=== PATIENT | female | born 1970 | race Caucasian/White ===

== ENCOUNTER → 2017-10-20 | Outpatient (CLI) | payer OTHER ==
--- NOTE | 2017-10-21 14:10 | XR ---
Limited cervical spine HISTORY: Strain of neck, neck pain 3 views of the cervical spine No comparisons Cervical vertebral bodies show preserved height, alignment, and bone mineralization. Disc spaces redu rafa at C5-6 and C6-7. Prevertebral soft tissues are normal. Spondylosis is present at C5-6 and C6-7. IMPRESSION: Degenerative disc disease.
== END | disposition home or self-care (01) ==
LOC: RADXRMAIN 17:59
PROVIDERS: ATTEND Family Medicine
DX: M50.30 Other cervical disc degeneration, unspecified cervical region (principal)
CPT/HCPCS: 72040

== ENCOUNTER → 2017-11-19 | Outpatient (CLI) | payer OTHER ==
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
== END ==
LOC: RADMRIMAIN 19:42
PROVIDERS: ATTEND Family Medicine
DX: M50.222 Other cervical disc displacement at C5-C6 level (principal)
CPT/HCPCS: 72141

== ENCOUNTER → 2018-07-05 | Outpatient (CLI) | payer OTHER ==
--- NOTE | 2018-07-05 12:47 | XR ---
EXAMINATION TYPE: XR chest 2V DATE OF EXAM: 07/05/2018 COMPARISON: NONE HISTORY: Presurgical TECHNIQUE: Frontal and lateral views of the chest are obtained. FINDINGS: There is no focal air space opacity, pleural effusion, or pneumothorax seen. Suspect a li near area of scarring left upper lobe. The cardiac silhouette size is within normal limits. Thoracic spinal curvature is noted. Hyperinflation be indicative of underlying COPD. The osseous structures a re intact. IMPRESSION: No acute cardiopulmonary process.
[2018-07-05 12:49] LABS: Basophils # (A) 0.1 k/uL (0-0.2); Basophils % (A) 1 %; Eosinophils # (A) 0.1 k/uL (0-0.7); Eosinophils % (A) 2 %; HCT 39.3 % (34.0-46.0); HGB 12.3 gm/dL (11.4-16.0); Hypochromasia Slight; Lymphocytes # (A) 1.4 k/uL (1.0-4.8); Lymphocytes % (A) 30 %; MCH 26.4 pg (25.0-35.0); MCHC 31.4 g/dL (31.0-37.0); MCV 83.9 fL (80.0-100.0); Mean Platelet Volume 8.5; Monocytes # (A) 0.3 k/uL (0-1.0); Monocytes % (A) 6 %; Neutrophils # (A) 2.8 k/uL (1.3-7.7); Neutrophils % (A) 59 %; Platelet Count 259 k/uL (150-450); RBC 4.68 m/uL (3.80-5.40); RDW 14.5 % (11.5-15.5); WBC 4.7 k/uL (3.8-10.6)
[2018-07-05 13:05] LABS: Partial Thromboplastin Time 23.3 sec (22.0-30.0); Prothrombin Time 10.3 sec (9.0-12.0)
[2018-07-05 13:10] LABS: Blood Urea Nitrogen 12 mg/dL (7-17); Carbon Dioxide 19 mmol/L (22-30); Chloride 109 mmol/L (98-107); Glucose 111 mg/dL (74-99)
[2018-07-05 13:21] LABS: Potassium 4.5 mmol/L (3.5-5.1)
[2018-07-05 13:24] LABS: Anion Gap 13 mmol/L; Sodium 141 mmol/L (137-145)
== END | disposition home or self-care (01) ==
LOC: LABPAT 10:45
PROVIDERS: ATTEND Orthopaedic Surgery Orthopaedic Surgery of the Spine
DX: Z01.818 Encounter for other preprocedural examination (principal); M50.222 Other cervical disc displacement at C5-C6 level
CPT/HCPCS: 36415; 71046; 80048; 85025; 85610; 85730

== ENCOUNTER → 2018-07-14 | Outpatient (CLI) | payer OTHER | LOC: LABPAT 10:28 | PROVIDERS: ATTEND Orthopaedic Surgery Orthopaedic Surgery of the Spine | DX: Z01.812 Encounter for preprocedural laboratory examination (principal); M50.222 Other cervical disc displacement at C5-C6 level | CPT/HCPCS: 36415; 86850; 86900; 86901 ==

== ENCOUNTER 2018-07-20 11:53 | Day surgery (SDC) | payer OTHER ==
[2018-07-12 09:27] VITALS: BMI 28.5
[~2018-07-20 11:53] MED LIST: DEXAMETHASONE SOD PHOSPHATE 10 MG/ML 1 ML VIAL IV ONE; HYDROmorphone 1 MG/ML 1 ML SYRINGE IVP PRN; LIDOCAINE 1% 20 ML VIAL (10MG/ML) FOR IV START INTRADERMA PRN; MIDAZOLAM 2 MG/2 ML VIAL IV PRN; SCOPOLAMINE 1.5MG/72HR PATCH TRANSDERM ONE; ceFAZolin IN SWFI 2 GM/20 ML SYRINGE IVP ONE
[2018-07-20] MEDS ORDERED: BACITRACIN 50,000 UNIT, POLYMYXIN B 500,000 UNIT in SODIUM CHLORIDE 0.9% IRRIGATIO 1,00... IRRIGATION ONE (12:48)
[2018-07-20] MEDS: ONDANSETRON 4 MG/2 ML VIAL IVP ONE ×2 (13:30→17:02)
[2018-07-20] MEDS: LACTATED RINGERS 1,000 ML IV SCH ×3 (13:30→18:16)
[2018-07-20] MEDS ORDERED: MIDAZOLAM 2 MG/2 ML VIAL ONE (13:44)
[2018-07-20] MEDS ORDERED: SUCCINYLCHOLINE CHLORIDE 100 MG/5 ML SYR IV ONE (13:44)
[2018-07-20] MEDS ORDERED: PROPOFOL 10 MG/ML 20 ML VIAL IV ONE (13:44)
[2018-07-20] MEDS ORDERED: fentaNYL (PF) 50 MCG/ML 2 ML AMP ONE (13:44)
[2018-07-20] MEDS ORDERED: LIDOCAINE 1% INJ 10MG/ML (20 ML MDV) ONE (13:44)
[2018-07-20] MEDS ORDERED: HYDROmorphone (PF) 1 MG/ML ONE (13:44)
[2018-07-20] MEDS ORDERED: BUPIVACAINE-EPI 0.5%-1:200,000 10 ML VIAL SQ ONE (14:15)
[2018-07-20] MEDS ORDERED: GELATIN SPONGE,ABSORB (LARGE) 1 EACH SPONGE TOPICAL ONE (14:55)
[2018-07-20] MEDS ORDERED: THROMBIN (BOVINE) 5,000 UNIT VIAL TOPICAL ONE (14:56)
--- NOTE | 2018-07-20 15:18 | XR ---
EXAMINATION TYPE: XR cervical spine 1V DATE OF EXAM: 07/20/2018 COMPARISON: NONE HISTORY: Needle placement TECHNIQUE: One view submitted FINDINGS: Postsurgical instrument overlying the disc interspace of C5-C6. Endotracheal tube noted. Hy pertrophic and degenerative disc disease noted. IMPRESSION: Intraoperative needle placement
[2018-07-20] MEDS ORDERED: ACETAMINOPHEN TAB 325 MG TAB PO PRN (15:41)
[2018-07-20] MEDS ORDERED: ONDANSETRON 4 MG/2 ML VIAL IVP PRN (15:41)
[2018-07-20] MEDS ORDERED: HYDROmorphone 1 MG/ML 1 ML SYRINGE IVP PRN (15:41)
[2018-07-20] MEDS ORDERED: BENZOCAINE/MENTHOL LOZENG 1 EACH LOZENGE MUCOUS MEM PRN (15:41)
[2018-07-20] MEDS ORDERED: tiZANidine 4 MG TAB PO PRN (15:42)
--- NOTE | 2018-07-20 15:43 | XR ---
EXAMINATION TYPE: XR cervical spine 1V DATE OF EXAM: 07/20/2018 COMPARISON: 07/20/2018 HISTORY: Hardware placement TECHNIQUE: One view submitted FINDINGS: Postsurgical change appears in near-anatomic alignment. Soft tissue overlap limits assessme nt of the lower postsurgical region. Endotracheal tube noted. IMPRESSION: Postsurgical changes
--- NOTE | 2018-07-20 15:47 | P.OP ---
Date of Procedure: 07/20/18 Preoperative Diagnosis: Herniated nucleus pulposus C5 6 C6 7, left upper extremity radiculopathy, left upper extremity weakness, degenerative disc disease, neck pain Postoperative Diagnosis: Same Anesthesia: GETA Pathology: none sent Condition: stable Disposition: PACU Description of Procedure: BRIEF OPERATIVE NOTE Preoperative Diagnosis:Herniated nucleus pulposus C5 6 C6 7, left upper extremity radiculopathy, left upper extremity weakness, degenerative disc disease, neck pain Postoperative Diagnosis: Same Procedure: Anterior cervical decompression with discectomy and fusion C5 6 C6 7 Placement of interbody graft C5 6 C6 7 Application of anterior cervical plate C5 6 7 Surgeon: Dr. Mon Snuff Grinder And Screener: Florentino Todd is present throughout the entire the case persistence during positioning, dissection, exposure, visualization, and all crucial elements of the case as well as closure. Anesthesia: General anesthesia per Dr. Marquis Estimated blood loss: Approximately 150 mL Complications: None apparent Components implanted: K2M [place] anterior cervical plate system with screws and the Vikos interbody allograft bone graft with 1 mL of DBX bone putty to supplemental allograft bone graft Disposition: To recovery room in good stable condition. OPERATIVE INDICATIONS The patient has had long-standing issues in their neck and upper extremities. She is found have a disc herniation at C5 6 and C6 7 with significant disc degeneration and stenosis the correlated well with her neck and left upper extremity symptoms. She is having significant left upper extremity radiculopathy and some evidence weakness at her left upper extremity. She continued to have significant pain at her neck which was becoming increasingly debilitating for her. The patient has been through conservative treatment. She is not having any benefit despite aggressive conservative care. We discussed various treatment options including surgery, and the patient wishes to proceed with surgery We discussed the risk, patient's alternatives and benefits of surgery including but not limited to, risk of bleeding risk of infection, risk of need for further surgery, risk of decreased, loss of motion, muscle function, malunion nonunion, hardware failure, nerve damage, paralysis, heart attack, and . OPERATIVE SUMMARY After discussing all the risks, patient alternatives and benefits at length, the patient elected to proceed with surgical intervention, signed informed consent, and presented for their procedure. The patient was seen and examined in the preoperative holding area and the surgical site was marked. The patient was given antibiotics and brought to the operating room. The patient was positioned on the operating room table in a supine position being careful to pad any bony prominences and pressure points. The patient was sedated and intubated by anesthesia in standard fashion. Once the airway and C- spine were stabilized the patient's arms were padded and tucked at her side, with her shoulders gently taped. The head was placed in a donut pad with the neck in good neutral alignment and position. We were careful to maintain the patient's cervical spine and good neutral alignment and position throughout. The patient was prepped and draped in a normal standard fashion. An appropriate timeout and keystone protocol performed. We were able to proceed with the surgery. The local wound area was infiltrated with local anesthetic. An incision was made transversely approximately 2-1/2 cm over the appropriate levels at C6. Dissection was taken down subcutaneously to the level of the platysma which was split in line with its fibers. Dissection was taken with a carotid approach, with the trachea and esophagus medial and the carotid sheath laterally. We dissected down to the anterior surface of the vertebral bodies. Intraoperative x-ray was taken which showed a marker at the appropriate level. With the appropriate level positively confirmed, we were able to proceed with discectomy at the appropriate levels first at C5 6 and then at C6 7. All of the operative levels were exposed appropriately. The patient had all their twitches back, and there was no evidence of recurrent laryngeal issue. The wound was copiously irrigated and suctioned dry as had been done periodically throughout the case. At the appropriate level/levels, I established an annulotomy with an 11 blade scalpel. I had to remove the anterior osteophytes with a Kerrison rongeur. A discectomy was performed with a combination of pituitary rongeurs, curettes, a high-speed bur, and Kerrison rongeurs. The posterior longitudinal ligament was taken down as were any posterior osteophytes. There had been significant central and bilateral foraminal compression from the disc and posterior osteophytes and ligament and this was remedied with the decompression. This gave good central and bilateral foraminal decompression. There is no evidence of any dural tear or leak. The endplates were prepared with a high-speed bur. With the endplates in good parallel position, I was able to size for the appropriate size interbody graft. The wound was irrigated and suctioned dry the graft was prepared and malleted into position. It had good alignment and position with the anterior surface flush with the anterior surface of the vertebral bodies. This was done similarly the appropriate levels. With the grafts intact, I was able to measure and contour and appropriate sized plate. The plate was positioned at the midline over the appropriate levels at C5 6 and 7. Screw holes were established with a hand drill and drill guide. Screws were placed in good alignment and position with excellent bony purchase. They were seated under the locking device. The construct was checked and found to be stable. Intraoperative x-ray was taken which showed good alignment and position of the implants at the appropriate levels. There was no evidence of any dural tear or leak. Good hemostasis was maintained. The wound was copiously irrigated and suctioned dry as had been done periodically throughout the case. The platysma was closed with absorbable suture. The subcutaneous tissue was closed. The subcuticular tissue was closed with absorbable suture. The wound was cleaned and dried and dressed appropriately. A soft cervical collar was placed appropriately. The patient was woken up by anesthesia, extubated, transferred back gently to their hospital bed and brought to the recovery room in good stable condition. The patient will be admitted to the hospital for appropriate postoperative care , medical management and monitoring. We will continue to follow them closely about the postoperative course.
[2018-07-20] MEDS ORDERED: SODIUM CHLORIDE 0.9% 1,000 ML IV ONE (16:44)
[2018-07-20] MEDS: HYDROmorphone 1 MG/ML 1 ML SYRINGE IVP PRN (18:13)
[2018-07-20] MEDS: SODIUM CHLORIDE 0.9% 1,000 ML IV SCH (18:16)
[2018-07-20] MEDS: HYDROcodone/APAP 5-325MG 1 EACH TAB PO PRN (19:48)
[2018-07-20] MEDS ORDERED: TOPIRAMATE 100 MG TAB PO SCH (21:00)
[2018-07-20] MEDS ORDERED: SERTRALINE 100 MG TAB PO SCH (21:00)
[2018-07-20] MEDS ORDERED: ALPRAZolam 0.5 MG TAB PO SCH (21:00)
[2018-07-20] MEDS ORDERED: ARIPiprazole 10 MG TAB PO SCH (21:00)
[2018-07-20] MEDS: ceFAZolin IN SWFI 2 GM/20 ML SYRINGE IVP SCH (21:29)
[2018-07-21] MEDS: HYDROcodone/APAP 5-325MG 1 EACH TAB PO PRN ×2 (00:27→07:41)
[2018-07-21] MEDS: HYDROmorphone 1 MG/ML 1 ML SYRINGE IVP PRN (02:46)
[2018-07-21] MEDS: SODIUM CHLORIDE 0.9% 1,000 ML IV SCH (04:35)
[2018-07-21] MEDS: ceFAZolin IN SWFI 2 GM/20 ML SYRINGE IVP SCH (05:41)
--- NOTE | 2018-07-21 08:20 | P.DS ---
Providers Date of admission: july 20, 2018 Attending physician: Malvin Mon Primary care physician: [facility] Course: The patient presented on the day of admission as per her operative note. She had significant cervical stenosis with herniated nucleus pulposis and underwent anterior cervical discectomy and fusion at C5 6 and C6 7 as per her operative note. She feels her arms are making some improvement. She has some tenderness at the anterior aspect of her neck. Her right chest but is tolerable for her. She is tolerating a soft diet adequately. Physical Exam The incision site is clean dry and intact. There is no erythema no drainage. There is no purulence no evidence of infection. Her neck is soft and supple. There is no significant swelling. There is some small amount of shadowing on the dressing which is stable. Abdomen soft and nontender. Chest has good excursion with deep inspiration and expiration. The patient has active and passive range of motion intact at the upper and lower extremities. There is no acute change in neurologic status. She has good strength in her bilateral upper extremities with wrist flexion and extension biceps and triceps Hospital Course Postoperative day 1 status post anterior cervical discectomy and fusion C5 6 C6 7 for her cervical stenosis with herniated nucleus pulposus and upper extremity radiculopathy on the left. Patient is making good progress postoperatively and is pleased with her results thus far. The patient has been making good progress postoperatively. They have completed the prophylactic antibiotics without any signs or symptoms of infection. The patient has been able to advance their diet, and is tolerating diet adequately. The pain was initially controlled with IV medications and is now controlled appropriately with oral medications. The patient has been able to increase their mobilization. The patient has progressed appropriately. I think they are in good stable condition for discharge today. They will be sent home with appropriate prescriptions. I answered their questions to the best of my ability in a language that they can understand and they are agreeable with the plan. They will follow up as directed in approximately 2 weeks or sooner if she is having any problems. Patient Condition at Discharge: Good Plan - Discharge Summary Discharge Rx Participant: Yes New Discharge Prescriptions: New HYDROcodone/APAP 5-325MG [[place] 5] 1 - 2 each PO Q6HR PRN #24 tab PRN Reason: Moderate To Severe Pain No Action tiZANidine [Zanaflex] 4 mg PO DAILY PRN PRN Reason: Muscle Pain Sertraline [Zoloft] 100 mg PO HS Topiramate [Topamax] 100 mg PO HS ARIPiprazole [Abilify] 10 mg PO HS ALPRAZolam [Xanax] 1 mg PO HS Discharge Medication List ALPRAZolam [Xanax] 1 mg PO HS 07/12/18 [History] ARIPiprazole [Abilify] 10 mg PO HS 07/12/18 [History] Sertraline [Zoloft] 100 mg PO HS 07/12/18 [History] Topiramate [Topamax] 100 mg PO HS 07/12/18 [History] tiZANidine [Zanaflex] 4 mg PO DAILY PRN 07/12/18 [History] HYDROcodone/APAP 5-325MG [[place] 5] 1 - 2 each PO Q6HR PRN #24 tab 07/20/18 [Rx] Follow up Appointment(s)/Referral(s): Malvin Mon DO [Doctor of Osteopathic Medicine] - 2 Weeks Activity/Diet/Wound Care/Special Instructions: Keep site clean. May shower with waterproof Tegaderm intact. Do not soak in a tub. On Wednesday, the patient May remove Tegaderm, but leave Steri-Strips intact and allow them to fray off on their own. After the removal of the dressing on Wednesday the patient may shower with area uncovered. Avoid heavy or rigorous activity. No overhead work No lifting greater than 15 pounds May ambulate to tolerance Discharge Disposition: HOME SELF-CARE
[2018-07-21 09:53] VITALS: BP 109/74; PULSE 72; RESP 16; TEMP 97.4
== END 2018-07-21 10:23 | disposition home or self-care (01) ==
LOC: OR 11:53 → 4SSUR 16:29 → OR 07-21 10:23
PROVIDERS: ATTEND Orthopaedic Surgery Orthopaedic Surgery of the Spine
DX: M50.122 Cervical disc disorder at C5-C6 level with radiculopathy (principal); M50.10 Cervical disc disorder with radiculopathy, unspecified cervical region; F32.9 Major depressive disorder, single episode, unspecified; J43.9 Emphysema, unspecified; E66.9 Obesity, unspecified; Z68.28 Body mass index [BMI] 28.0-28.9, adult; Z98.1 Arthrodesis status; J45.909 Unspecified asthma, uncomplicated; F41.9 Anxiety disorder, unspecified; Z98.84 Bariatric surgery status; Z79.899 Other long term (current) drug therapy; Z88.8 Allergy status to other drugs, medicaments and biological substances; Z87.891 Personal history of nicotine dependence
CPT/HCPCS: 22551; 22552; 20931; 81025; 72020; C1713 ×2; C1762 ×2; J2250; J2405; J2001; J3010; J1170 ×2; J0330; J2704; J0690 ×2; 36415; 86850; 86900; 86901

== ENCOUNTER → 2019-09-05 | Outpatient (CLI) | payer OTHER ==
--- NOTE | 2019-09-21 12:45 | EM ---
EVENT MONITOR Patient was monitored between the 05 of September and August,. The rhythm strip reviewed revealed a sinus mechanism as a baseline rhythm with single PVCs with short bursts SVT at a maximum of 5 complexes. There was no evidence of atrial fibrillation or significant pauses. SUGAR / SHIRA: [id number] /
== END | disposition home or self-care (01) ==
LOC: RADECHMAIN 11:45
PROVIDERS: ATTEND Family Medicine
DX: R55 Syncope and collapse (principal)
CPT/HCPCS: 93270

== ENCOUNTER → 2019-10-13 | Outpatient (CLI) | payer OTHER ==
--- NOTE | 2019-10-13 12:36 | ECHOF ---
Referral Reason:R55 syncope and collapse MEASUREMENTS -------- HEIGHT: 162.6 cm WEIGHT: 71.2 kg BP: RVIDd: 3.2 cm (< 3.3) IVSd: 1.0 cm (0.6 - 1.1) LVIDd: 3.2 cm (3.9 - 5.3) LVPWd: 0.9 cm (0.6 - 1.1) IVSs: 1.1 cm LVIDs: 2.6 cm LVPWs: 1.9 cm LAESV Index (A-L): 20.90 ml/m IVSd: 0.9 cm (0.6 - 1.1) LVIDd: 5.3 cm (3.9 - 5.3) LVPWd: 1.1 cm (0.6 - 1.1) IVSs: 1.9 cm LVIDs: 3.7 cm LVPWs: 1.6 cm EDV(Teich): 138 ml ESV(Teich): 57 ml EF(Teich): 59 % %FS: 31 % SV(Teich): 81 ml Ao Diam: 3.1 cm (2.0 - 3.7) AV Cusp: 1.6 cm (1.5 - 2.6) MV EXCURSION: 17.918 mm (> 18.000) MV EF SLOPE: 110 mm/s (70 - 150) EPSS: 0.3 cm MV E Milad: 0.73 m/s MV DecT: 219 ms MV A Milad: 0.47 m/s MV E/A Ratio: 1.56 RAP: 5.00 mmHg RVSP: 28.98 mmHg FINDINGS -------- Sinus rhythm. This was a technically good study. The left ventricular size is normal. Left ventricular wall thickness is normal. Overall left vent ricular systolic function is normal with, an EF between 60 - 65 %. The diastolic filling pattern is normal for the age of the patient 7.09. The right ventricle is normal in size. Normal LA size by volume 22+/-6 ml/m2. The right atrial size is normal. Interatrial and interventricular septum intact. The aortic valve is trileaflet and appears structurally normal. There is no evidence of aortic regu rgitation. There is no evidence of aortic stenosis. The mitral valve is normal. There is trace mitral regurgitation. Mild tricuspid regurgitation present. There is no evidence of pulmonary hypertension. The right v entricular systolic pressure, as measured by Doppler, is 28.98mmHg. The pulmonic valve is normal. The aortic root size is normal. Normal inferior vena cava with normal inspiratory collapse consistent with estimated right atrial pre ssure of 5 mmHg. There is no pericardial effusion. CONCLUSIONS -------- 1. Sinus rhythm. 2. This was a technically good study. 3. The left ventricular size is normal. 4. Left ventricular wall thickness is normal. 5. Overall left ventricular systolic function is normal with, an EF between 60 - 65 %. 6. The diastolic filling pattern is normal for the age of the patient 7.09 7. The right ventricle is normal in size. 8. Normal LA size by volume 22+/-6 ml/m2. 9. The right atrial size is normal. 10. Interatrial and interventricular septum intact. 11. The aortic valve is trileaflet and appears structurally normal. 12. There is no evidence of aortic regurgitation. 13. There is no evidence of aortic stenosis. 14. The mitral valve is normal. 15. There is trace mitral regurgitation. 16. Mild tricuspid regurgitation present. 17. There is no evidence of pulmonary hypertension. 18. The right ventricular systolic pressure, as measured by Doppler, is 28.98mmHg. 19. The pulmonic valve is normal. 20. The aortic root size is normal. 21. Normal inferior vena cava with normal inspiratory collapse consistent with estimated right atrial pressure of 5 mmHg. 22. There is no pericardial effusion. PLUMBING INSTALLER: Kelly Contreras RDCS
== END | disposition home or self-care (01) ==
LOC: RADECHMAIN 08:29
PROVIDERS: ATTEND Family Medicine
DX: I07.1 Rheumatic tricuspid insufficiency (principal)
CPT/HCPCS: 93306

== ENCOUNTER → 2020-08-05 | Outpatient (CLI) | payer OTHER | END | disposition home or self-care (01) | LOC: LABWHC1 15:43 | PROVIDERS: ATTEND Family Medicine | DX: Z20.828 Contact with and (suspected) exposure to other viral communicable diseases (principal) | CPT/HCPCS: U0003; C9803 ==

== ENCOUNTER → 2021-02-14 | Outpatient (CLI) | payer OTHER ==
--- NOTE | 2021-02-17 11:01 | MM ---
Reason for exam: screening (asymptomatic). Last mammogram was performed 5 years and 4 months ago. History: Patient is postmenopausal. Family history of breast cancer in sister at age 48. Benign excisional biopsy of the right breast. Physical Findings: A clinical breast exam by your physician is recommended on an annual basis and results should be correlated with mammographic findings. MG 3D Screening Mammo W/Cad Bilateral CC and MLO view(s) were taken. Prior study comparison: November 01, 2015, mammogram, performed at [facility]. January 09, 2014, CAD bilateral diagnostic mammogram. The breast tissue is heterogeneously dense. This may lower the sensitivity of mammography. There is no discrete abnormality. ASSESSMENT: Negative, BI-RAD 1 RECOMMENDATION: Routine screening mammogram of both breasts in 1 year.
== END | disposition home or self-care (01) ==
LOC: RADMAMWWP 07:03
PROVIDERS: ATTEND Family Medicine
DX: Z12.31 Encounter for screening mammogram for malignant neoplasm of breast (principal); Z78.0 Asymptomatic menopausal state; Z80.3 Family history of malignant neoplasm of breast
CPT/HCPCS: 77063; 77067

== ENCOUNTER → 2023-01-13 | Outpatient (CLI) | payer OTHER ==
--- NOTE | 2023-01-14 07:20 | MM ---
Reason for Exam: Screening (asymptomatic). Last mammogram was performed 1 year(s) and 11 month(s) ago. Patient History: Menarche at age 12. First Full-Term at age 23. Postmenopausal. Benign Excisional Biopsy on the right side. Sister had breast cancer, age 48. Risk Values: Maria Esther 5 year model risk: 2.4%. NCI Lifetime model risk: 16.9%. Prior Study Comparison: 01/09/2014 Bilateral Diagnostic Mammogram, [facility]. 11/01/2015 Screening Mammogram, [facility]. 02/14/2021 Bilateral Screening Mammogram, [facility]. Tissue Density: There are scattered fibroglandular densities. Findings: Analyzed By CAD. There is no suspicious group of microcalcifications or new suspicious mass in either breast. Chronic nodularity within the right breast. Overall Assessment: Benign, BI-RAD 2 Management: Screening Mammogram of both breasts in 1 year. A clinical breast exam by your physician is recommended on an annual basis and results should be correlated with mammographic findings. Electronically signed and approved by: Stephen Max D.O.
== END | disposition home or self-care (01) ==
LOC: RADMAMWWP 16:55
PROVIDERS: ATTEND Family Medicine
DX: Z12.31 Encounter for screening mammogram for malignant neoplasm of breast (principal); Z78.0 Asymptomatic menopausal state; Z80.3 Family history of malignant neoplasm of breast
CPT/HCPCS: 77063; 77067

== ENCOUNTER 2024-05-04 08:50 | Day surgery (SDC) | payer OTHER ==
[2024-05-04 09:31] LABS: Glucose,Whole Blood 96 mg/dL (70-110)
[2024-05-04] MEDS ORDERED: LIDOCAINE 1% INJ 10MG/ML (20 ML MDV) ONE (09:48)
[2024-05-04] MEDS ORDERED: PROPOFOL 10 MG/ML 20 ML VIAL IV ONE (09:48)
[2024-05-04] MEDS ORDERED: LACTATED RINGERS 1,000 ML BAG ONE (09:49)
== END 2024-05-04 11:05 | disposition home or self-care (01) ==
LOC: ORWHC2ENDO 08:50
PROVIDERS: ATTEND Surgery Plastic and Reconstructive Surgery
DX: K29.50 Unspecified chronic gastritis without bleeding (principal); K31.A0 Gastric intestinal metaplasia, unspecified; K20.90 Esophagitis, unspecified without bleeding; K64.8 Other hemorrhoids; J45.909 Unspecified asthma, uncomplicated; Z79.899 Other long term (current) drug therapy; Z88.8 Allergy status to other drugs, medicaments and biological substances; Z98.84 Bariatric surgery status; Z98.890 Other specified postprocedural states
CPT/HCPCS: 43239; 45378; 88305; 88312; 88342

== ENCOUNTER → 2024-05-13 | Outpatient (CLI) | payer OTHER | END | disposition home or self-care (01) | LOC: LABPRL 18:00 | PROVIDERS: ATTEND Surgery Plastic and Reconstructive Surgery | DX: E66.01 Morbid (severe) obesity due to excess calories (principal); E89.1 Postprocedural hypoinsulinemia; D50.8 Other iron deficiency anemias; K90.89 Other intestinal malabsorption; E55.9 Vitamin D deficiency, unspecified; K74.1 Hepatic sclerosis; T56.894A Toxic effect of other metals, undetermined, initial encounter; N19 Unspecified kidney failure; K50.90 Crohn's disease, unspecified, without complications; Z68.28 Body mass index [BMI] 28.0-28.9, adult | CPT/HCPCS: 82525; 84255; 84425; 84590; 84630 ==

== ENCOUNTER → 2024-06-28 | Outpatient (CLI) | payer OTHER ==
[2024-06-28 14:45] VITALS: BP 120/82; PULSE 74; RESP 16; TEMP 97.8; BMI 37.5
--- NOTE | 2024-06-28 15:05 | P.BASOAP ---
Subjective Progress Note Date: 06/28/24 Esophagram for reflux is needed. Labs being obtained. She reports troubles with her feet. Stimulator is being removed. Her highest weight is 260 pounds. She had sleeve. Highest 260 pounds. Lowest 170 pounds. She had problems after sleeve. For sure hiatal hernia. Abnormal EKG.Get cardiac clearance. She has stuck sensation and intractable N/V due. Food diary journal is advised. Objective - Vital Signs Vital signs: Vital Signs Temp 97.8 F 06/28/24 14:31 Pulse 74 06/28/24 14:31 Resp 16 06/28/24 14:31 BP 120/82 06/28/24 14:31 Pulse Ox FiO2 Intake & Output 06/27/24 06/28/24 06/28/24 18:59 06:59 18:59 Weight 100.698 kg Assessment/Plan Plan: Date: 06/28/24 Initial Weight: Initial BMI: Current Weight: 100.698 kg Current BMI: 37.5 Type of Surgery: Total Volume in Band: Previous Volume: Volume Removed: Volume Added: Band Size:
== END ==
LOC: BARWHC3 13:55
PROVIDERS: ATTEND Surgery Plastic and Reconstructive Surgery
DX: E66.01 Morbid (severe) obesity due to excess calories (principal); Z68.37 Body mass index [BMI] 37.0-37.9, adult; Z88.8 Allergy status to other drugs, medicaments and biological substances; F17.210 Nicotine dependence, cigarettes, uncomplicated
CPT/HCPCS: 99211

== ENCOUNTER → 2024-07-13 | Outpatient (CLI) | payer OTHER ==
--- NOTE | 2024-07-13 10:08 | XR ---
EXAMINATION TYPE: XR chest 2V DATE OF EXAM: 07/13/2024 COMPARISON: 07/05/2018 TECHNIQUE: PA and lateral views submitted. HISTORY: Surgical FINDINGS: The lungs are clear and there is no pneumothorax, pleural effusion, or focal pneumonia. Heart size normal and no overt failure. Osseous structures demonstrate hypertrophic and degenerative changes of the spine. Dr. Leonardo Cervical spine there is a stimulator device overlying the vertebral column. Generalized demineralizat ion. Underlying emphysematous changes. IMPRESSION: 1. No acute process. [facility], , 07/13/2024 10:06 AM
--- NOTE | 2024-07-13 10:22 | FL ---
EXAMINATION TYPE: FL barium swallow DATE OF EXAM: 07/13/2024 CLINICAL HISTORY: Dysphagia TECHNIQUE: A single contrast esophagram is performed utilizing air and barium. A total of 60 second s of fluoroscopic time was utilized during procedure and 20 images obtained. Total dose area product (DAP) in uGy*m?, mGy*cm? (or similar) . COMPARISON: None FINDINGS: Postsurgical changes are seen. No intraluminal filling defect. There is no evidence of obst ruction. No significant gastroesophageal reflux was seen during real time performance of this study. There is an area of narrowing of the proximal gastric body. Mild irregularity of the region of the ga stric fundus\GE junction. Small hernia suggested. IMPRESSION: 1. There is narrowing at the region of the gastric body proximally. Recommend EGD for further evaluat ion. Underlying external compression or mucosal lesion is not excluded. 2. Mild irregularity of the folds of the GE junction proximal gastric folds. Possibly related to inco mplete distention. Correlation with EGD can be obtained to exclude inflammatory changes or mucosal ab normality. [facility], , 07/13/2024 10:20 AM
== END | disposition home or self-care (01) ==
LOC: RADFLMAIN 09:14
PROVIDERS: ATTEND Surgery Plastic and Reconstructive Surgery
CPT/HCPCS: 71046; 74220

== ENCOUNTER → 2024-07-13 | Outpatient (CLI) | payer OTHER | END | disposition home or self-care (01) | LOC: LABWHC1 10:07 | PROVIDERS: ATTEND Neurological Surgery | DX: Z53.9 Procedure and treatment not carried out, unspecified reason (principal) ==

== ENCOUNTER → 2024-07-14 | Outpatient (CLI) | payer OTHER ==
[2024-07-14 13:12] LABS: INR 0.9 (<1.2); Partial Thromboplastin Time 23.5 sec (22.0-30.0); Prothrombin Time 10.3 sec (10.0-12.5)
[2024-07-14 15:23] LABS: HCT 33.6 % (37.2-46.3); HGB 9.5 g/dL (12.0-15.0); MCH 22.5 pg (27.0-32.0); MCHC 28.3 g/dL (32.0-37.0); MCV 79.4 FL (80.0-97.0); Mean Platelet Volume 12.1 FL (9.5-12.2); NRBC Per 100 WBC 0 X 10*3/uL (0.00-0.01); Platelet Count 353 X 10*3/uL (140-440); RBC 4.23 X 10*6/uL (4.10-5.20); RDW 16.4 % (11.5-14.5); WBC 4.47 X 10*3/uL (4.50-10.00)
[2024-07-14 15:50] LABS: Prealbumin 16.9 mg/dL (18.0-42.0)
[2024-07-14 16:00] LABS: % Iron Saturation 5.02 (12.00-45.00); Chol/HDL Ratio 2.27 Ratio; Ferritin 7.5 ng/mL (10.0-291.0); Iron 27 UG/DL (50-170); Magnesium 1.9 mg/dL (1.5-2.4); Phosphorus 4.2 mg/dL (2.4-5.1); Total Iron Binding Capacity 538 UG/DL (228-460); VLDL Calculation 16.18 mg/dL (5.00-40.00)
[2024-07-14 16:02] LABS: ALT 14 U/L (8-44); AST 33 U/L (13-35); Albumin/Globulin Ratio 1.25 Ratio (1.60-3.17); Alkaline Phosphatase 108 U/L (41-126); BUN/Creat Ratio 12.73 Ratio (12.00-20.00); Calcium 9.7 mg/dL (8.7-10.3); Carbon Dioxide 25.5 mmol/L (21.6-31.8); Chloride 102 mmol/L (96-109); Globulin 3.2 g/dL (1.6-3.3); Glucose 81 mg/dL (70-110); Potassium 5.2 mmol/L (3.5-5.5); Sodium 140 mmol/L (135-145); Total Bilirubin 0.3 mg/dL (0.3-1.2); Total Protein 7.2 g/dL (6.2-8.2)
[2024-07-17 15:52] LABS: Zinc, Serum 91 ug/dL (60-130)
[2024-07-18 07:31] LABS: Vit B1(Thiamine) 68 ug/L (38-122)
[2024-07-18 07:46] LABS: Anabasine Urine <2.0 ng/mL (<2.0)
== END | disposition home or self-care (01) ==
LOC: LABPAT 07:40
PROVIDERS: ATTEND Surgery Plastic and Reconstructive Surgery
CPT/HCPCS: 80053; 80061; 80307; 80323; 82306; 82525; 82607; 82728; 82746; 83036; 83540; 83550; 83735; 83970; 84100; 84134; 84255; 84425; 84443; 84590; 84630; 85027; 85610; 85730

== ENCOUNTER → 2024-10-05 | Outpatient (CLI) | payer OTHER ==
[2024-10-05 09:41] VITALS: BP 130/86; PULSE 75; RESP 16; TEMP 96.8
--- NOTE | 2024-10-05 15:01 | P.PAINPG ---
PQRS Measure Charge Sheet Comment: HISTORY OF PRESENT ILLNESS: A 53 yr old female as a referral from Dr Parrish presents today w severe and chronic LBP since Jun 2024 secondary to radiculopathy, spondylosis and facet arthropathy without myelopathy for evaluation. Pt states pain level is provoked at 7 /10 in intensity, constant, localized in the lumbar spine, predominantly axial, sore in character without shooting pain. Pain is provoked by bending and over activity. Pain is alleviated by PT x 6 wks which ended in 2021, physician guided home stretches daily since 2021, heat, ice, medications ( Ibu), repositioning and rest . Oswestry axial pain score at 26. PMH: OA, Asthma PSH: L5-S1 Posterior Fusion w Hardware (2007), L5-S1 Laminectomy/ Discectomy (prior 2007), C5-C7 ACDF (2017), SCS Cervical (2022) w Removal, EGD (2023) SH: Negative x3 FH: Fa- CAD, Asthma All: See list Meds: See list REVIEW OF ORGAN SYSTEMS: CONSTITUTIONAL: No fevers or chills. No recent weight loss. NEUROLOGICAL: + numbness and tingling along the distal extremities. No seizure disorders or headaches. MUSCULOSKELETAL: + pain PSYCHIATRIC: Denies current depression or suicidal thoughts. Physical Examinations : Constitutional : Cooperative , not in acute distress . Neurologic : Cranial nerve II to XII intact. No focal neurological deficits. Psychiatric : alert & oriented x 3. Matching mood & appropriate affect. Judgment & insight intact. Musculoskeletal : Cervical Spine Motor strength in the deltoid and biceps: Normal right side. Normal Left side Motor strength biceps and the wrist extensors: Normal right side . Normal left side Motor strength in the triceps muscle: Normal right side. Normal left side Deep tendon reflexes: Normal at the biceps. Normal at Brachioradialis. Normal at triceps Vertebral body tenderness to deep palpation over Cervical facet loading test: positive bilaterally Spurling test: positive bilaterally Neck distraction test: positive bilaterally Navi sign: positive bilaterally Lumbar spine Motor strength lower extremities ,thigh and legs 5/5 Right side , 5/5 Left side Deep tendon reflexes : Normal Knee Jerk. Normal Ankle Jerk Vertebral body tenderness over Neff Test positive Lumbar facet Loading Test: positive Right / positive Left L3-L4/ L4-L5 Range of motion of the lumbar spine Flexion 30 degrees, extension 10 degrees Straight Leg Raise test: Left/ Right positive at degrees Willis test: positive right / positive left. Severe tenderness over the Sacroiliac joint on the Right / Left sides Gaenslen test: positive bilaterally Seated flexion test: positive bilaterally. Sacral spine : Severe tenderness over the Sacroiliac joint: right side / left side Range of motion: Flexion of the lumbar spine <60 degrees Range of motion: Extension of the lumbar spine <20 degrees Gaenslen's Test positive Willis test: positive right side / left side Thigh Thrust Test Sacral Thrust Test Imaging: MRI non contrast lumbar spine from 05/02/24 Assessment/ Plan : Lumbar radiculopathy Recommendation of KADEN MBB L3-L4/ L4-L5 #1. Risks, benefits of procedure discussed and patient verbalized understanding. Admits to anti- coagulant use or medical history of diabetes. Protocol for discontinuation/ continuation of medications yao procedure discussed. Minimal anesthesia provided, if clinically indicated, consisting of Versed and Fentanyl. All questions answered. I have spent greater than 30 minutes on patient care today. Dr García was available by phone for the evaluation of this patient. The time was used to review the medical records including relevant urine studies and Prescription history (MAPs), review of the available imaging, evaluation and examination of the patient, coordination of care with the medical staff and if applicable referring physicians, as well as creation of the medical record - Pain Location Bilateral Lower Back Non-Pharmacological Interventions: Heat, Ice, Inactivity, Physical Therapy, Position/Reposition, Sitting Pharmacological Interventions: PRN Medication Home Medications: Ambulatory Orders Daridorexant HCl [Quviviq] 1 tab PO HS 06/28/24 Gabapentin 1 tab PO BID 06/28/24 Omeprazole 40 mg PO DAILY 06/28/24 metFORMIN HCL [Glucophage] 1 tab PO DAILY 06/28/24 Controlled Substance Measures - Controlled Substance Measures Is patient prescribed a controlled substance at discharge?: No
== END ==
LOC: PNWHC3 09:08
PROVIDERS: ATTEND Specialist
DX: M54.16 Radiculopathy, lumbar region (principal); Z88.8 Allergy status to other drugs, medicaments and biological substances; Z87.891 Personal history of nicotine dependence
CPT/HCPCS: 99211

== ENCOUNTER 2024-10-13 06:29 | Day surgery (SDC) | payer OTHER ==
[2024-10-13 06:50] VITALS: TEMP 97.2
[2024-10-13 06:58] LABS: Glucose,Whole Blood 94 mg/dL (70-110)
[2024-10-13] MEDS: SODIUM CHLORIDE 0.9% 500 ML 500 ML IV ONE (06:59)
[2024-10-13] MEDS ORDERED: LACTATED RINGERS 1,000 ML IV SCH (07:03)
[2024-10-13] MEDS ORDERED: MIDAZOLAM 2 MG/2 ML VIAL ONE (07:10)
[2024-10-13] MEDS ORDERED: fentaNYL (PF) 50 MCG/ML 2 ML AMP ONE (07:10)
[2024-10-13] MEDS ORDERED: ROPIVACAINE 5MG/ML 20ML VIAL ONE (07:10)
--- NOTE | 2024-10-13 07:30 | P.PCN ---
Date of Procedure: 10/13/24 Procedure(s) Performed: PREOPERATIVE DIAGNOSIS : 1- Lumbar spondylosis with Facet Arthropathy with out myelopathy . 2- Lumber degenerative disc disease POSTOPERATIVE DIAGNOSIS: 1- Lumbar spondylosis with Facet Arthropathy without myelopathy . 2- Lumber degenerative disc disease PROCEDURE: Diagnostic bilateral L2 ,L3 , L4 medial branch block under fluoroscopy guidance(fluoroscopy images in the radiology Department ) ( To target the facet joint between Bilateral L3-4, L4-5 )#1st ANESTHESIA:moderate sedation with intravenous Versed 2 mg and Fentanyl 100 mcg.(Patient started at 07:10 , ended at 07:25) EBL: Minimal COMPLICATION: None PROCEDURE INDICATION: Chronic low back pain secondary to Facet arthropathy unresponsive to conservative treatment. PROCEDURE DESCRIPTION: the patient was seen and identified in the preop holding area , risks and benefits and possible complications of the procedure and alternative were discussed with the patient, and the patient agreed to proceed with the procedure and signed the consent and vital signs monitored during the procedure and fluoroscopy was used to maximize the benefit and accuracy of the needle placement, and sedation was given to decrease patient anxiety, patient was taken to the procedure room and placed in prone position vital signs monitored in the back prepped with chlorhexidine X3 then under strict sterile technique using a right oblique fluoroscopy ,the junction of the transverse process and the superior articulating process of the right L2 ,L3 , L4 vertebra which corresponding to the fluoroscopy image of the eye of the Homer dog on the block side for the medial branches and subsequently , after local infiltration of skin and subcu tissuies with Ropivacaine 0.5 % , one mL at each level ,then 22-gauge 5 inches long Quincke-type needles , 3 needle was used , each one of them placed at the junction of the base of the transverse process and the superior articular process at the appropriate level, and the needle was advanced until the periosteum contacted, needle placement confirmed with AP oblique and lateral view and after appropriate needle placement confirmed, and after negative aspiration for heme and CSF and there was no par esthesia 1-1/2 mL of Ropivacaine 0.5% , then half mL injected at each level after negative aspiration the needle subsequently removed and the same procedure repeated for the left side at left side at L2, L3 , L4 levels. At the end of the procedure and the needles removed and a bandage applied after the skin was cleaned the cleaning solution patient taken to recovery room in stable condition and monitors in the recovery room for 20-30 minutes and discharged home in stable condition after discharge criteria met and patient will follow up with the pain clinic in 2-4 weeks
[2024-10-13] MEDS: IV FLUID CONTINUATION 250 ML IV ONE (07:31)
[2024-10-13 07:47] VITALS: BP 123/81; PULSE 68; RESP 18
--- NOTE | 2024-10-13 08:08 | FL ---
EXAMINATION TYPE: FL guided pain mgmt statistic DATE OF EXAM: 10/13/2024 7:58 AM COMPARISON: Pre Operative Images if available both CT/MRI or plain film CLINICAL INDICATION: Female, 53 years old with history of FACET BLOCK; TECHNIQUE: FL guided pain mgmt statistic, multiple fluoroscopic images provided for procedure. Total fluoroscopy time: 17.7 seconds Total submitted images to PACS: 4 DAP: 0.70179 mGym2 Gycm2 uGym2 cGycm2 or equivalent. FINDINGS: Fluoroscopic images during injection for pain management demonstrate multilevel degeneration changes throughout the spine. No evidence for fracture. No acute process identified. IMPRESSION: 1. No evidence for intraoperative complication. 2. Please see the operative/procedural note for further details. [facility], , 10/13/2024 8:05 AM
== END 2024-10-13 08:11 | disposition home or self-care (01) ==
LOC: ORPAIN 06:29
PROVIDERS: ATTEND Specialist
DX: M47.816 Spondylosis without myelopathy or radiculopathy, lumbar region (principal); M51.369 Other intervertebral disc degeneration, lumbar region without mention of lumbar back pain or lower extremity pain
CPT/HCPCS: 64493; 64494; J2250; J3010; J2795; 99152

== ENCOUNTER 2024-11-17 07:01 | Day surgery (SDC) | payer OTHER ==
[2024-11-17 07:18] VITALS: TEMP 97.3
[2024-11-17 07:28] LABS: Glucose,Whole Blood 90 mg/dL (70-110)
[2024-11-17] MEDS: LACTATED RINGERS 1,000 ML IV SCH (07:28)
[2024-11-17] MEDS: IV FLUID CONTINUATION 1,000 ML IV ONE ×2 (07:28→08:20)
[2024-11-17] MEDS ORDERED: MIDAZOLAM 2 MG/2 ML VIAL ONE (07:57)
[2024-11-17] MEDS ORDERED: ROPIVACAINE 5MG/ML 20ML VIAL ONE (07:57)
[2024-11-17] MEDS ORDERED: fentaNYL (PF) 50 MCG/ML 2 ML AMP ONE (07:57)
--- NOTE | 2024-11-17 08:16 | P.PCN ---
Date of Procedure: 11/17/24 Procedure(s) Performed: PREOPERATIVE DIAGNOSIS : 1- Lumbar spondylosis with Facet Arthropathy with out myelopathy . 2- Lumber degenerative disc disease POSTOPERATIVE DIAGNOSIS: 1- Lumbar spondylosis with Facet Arthropathy without myelopathy . 2- Lumber degenerative disc disease PROCEDURE: Diagnostic bilateral L2 ,L3 , L4 medial branch block under fluoroscopy guidance(fluoroscopy images in the radiology Department ) ( To target the facet joint between Bilateral L3-4, L4-5 )#2nd ANESTHESIA:moderate sedation with intravenous Versed 2 mg and Fentanyl 150 mcg.(Patient started at 07:57 , ended at 08:12) EBL: Minimal COMPLICATION: None PROCEDURE INDICATION: Chronic low back pain secondary to Facet arthropathy unresponsive to conservative treatment. PROCEDURE DESCRIPTION: the patient was seen and identified in the preop holding area , risks and benefits and possible complications of the procedure and alternative were discussed with the patient, and the patient agreed to proceed with the procedure and signed the consent and vital signs monitored during the procedure and fluoroscopy was used to maximize the benefit and accuracy of the needle placement, and sedation was given to decrease patient anxiety, patient was taken to the procedure room and placed in prone position vital signs monitored in the back prepped with chlorhexidine X3 then under strict sterile technique using a right oblique fluoroscopy ,the junction of the transverse process and the superior articulating process of the right L2 ,L3 , L4 vertebra which corresponding to the fluoroscopy image of the eye of the Homer dog on the block side for the medial branches and subsequently , after local infiltration of skin and subcu tissuies with Ropivacaine 0.5 % , one mL at each level ,then 22-gauge 5 inches long Quincke-type needles , 3 needle was used , each one of them placed at the junction of the base of the transverse process and the superior articular process at the appropriate level, and the needle was advanced until the periosteum contacted, needle placement confirmed with AP oblique and lateral view and after appropriate needle placement confirmed, and after negative aspiration for heme and CSF and there was no par esthesia 1-1/2 mL of Ropivacaine 0.5% , then half mL injected at each level after negative aspiration the needle subsequently removed and the same procedure repeated for the left side at left side at L2, L3 , L4 levels. At the end of the procedure and the needles removed and a bandage applied after the skin was cleaned the cleaning solution patient taken to recovery room in stable condition and monitors in the recovery room for 20-30 minutes and discharged home in stable condition after discharge criteria met and patient will follow up with the pain clinic in 2-4 weeks
[2024-11-17 08:23] VITALS: RESP 16
[2024-11-17 08:39] VITALS: BP 105/68; PULSE 66
--- NOTE | 2024-11-17 08:48 | FL ---
Fluoroscopy INDICATION: Pain FINDINGS: Fluoroscopy time: 31.1 seconds. Total dose area product (DAP) in uGy*m?, mGy*cm? (or similar): 0.37338 Images obtained: 5. Images document needle placement adjacent lumbar spine IMPRESSION: 1. Documentation of fluoroscopy. [facility], , 11/17/2024 8:45 AM
== END 2024-11-17 08:52 | disposition home or self-care (01) ==
LOC: ORPAIN 07:01
PROVIDERS: ATTEND Specialist
DX: M47.816 Spondylosis without myelopathy or radiculopathy, lumbar region (principal); M51.369 Other intervertebral disc degeneration, lumbar region without mention of lumbar back pain or lower extremity pain; G89.29 Other chronic pain; Z79.84 Long term (current) use of oral hypoglycemic drugs; Z88.8 Allergy status to other drugs, medicaments and biological substances
CPT/HCPCS: 64493; 64494 ×2; 99152; J2250; J3010; J2795

== ENCOUNTER → 2024-12-06 | Outpatient (CLI) | payer OTHER ==
[2024-12-06 08:37] VITALS: BP 114/80; PULSE 68; RESP 16; TEMP 98.2
--- NOTE | 2024-12-06 15:44 | P.PAINPG ---
Objective - Vital Signs Vital signs: Vital Signs Temp 98.2 F 12/06/24 08:33 Pulse 68 12/06/24 08:33 Resp 16 12/06/24 08:33 BP 114/80 12/06/24 08:33 Pulse Ox 95 12/06/24 08:33 FiO2 Intake & Output 12/05/24 12/06/24 12/06/24 18:59 06:59 18:59 Weight 98.883 kg PQRS Measure Charge Sheet Mode of Arrival: Ambulatory Comment: HISTORY OF PRESENT ILLNESS: A 53 yr old female presents today w severe and chronic LBP since Jun 2024 secondary to L5-S1 Laminectomy/ Discectomy/ Posterior Fusion w Hardware, ACDF C5-C7 for evaluation s/p BL MBB L3-L4/ L4-L5 #2. Pt states she experienced 95% pain relief x 5 days s/p procedure. Pt states pain level is provoked at 6 /10 in intensity, intermittent, localized in the lumbar spine, predominantly axial, sore in character without shooting pain. Pain is provoked by bending and over activity. Pain is alleviated by PT x 6 wks which ended in 2021, physician guided home stretches daily since 2021, heat, ice, medications, repositioning and rest . Interventional procedures include BL MBB L2-L5 x2 Medications include Ibu REVIEW OF ORGAN SYSTEMS: CONSTITUTIONAL: No fevers or chills. No recent weight loss. NEUROLOGICAL: + numbness and tingling along the distal extremities. No seizure disorders or headaches. MUSCULOSKELETAL: + pain PSYCHIATRIC: Denies current depression or suicidal thoughts. Physical Examinations : Constitutional : Cooperative , not in acute distress . Neurologic : Cranial nerve II to XII intact. No focal neurological deficits. Psychiatric : alert & oriented x 3. Matching mood & appropriate affect. Judgment & insight intact. Musculoskeletal : Cervical Spine Motor strength in the deltoid and biceps: Normal right side. Normal Left side Motor strength biceps and the wrist extensors: Normal right side . Normal left side Motor strength in the triceps muscle: Normal right side. Normal left side Deep tendon reflexes: Normal at the biceps. Normal at Brachioradialis. Normal at triceps Vertebral body tenderness to deep palpation over Cervical facet loading test: positive bilaterally Spurling test: positive bilaterally Neck distraction test: positive bilaterally Navi sign: positive bilaterally Lumbar spine Motor strength lower extremities ,thigh and legs 5/5 Right side , 5/5 Left side Deep tendon reflexes : Normal Knee Jerk. Normal Ankle Jerk Vertebral body tenderness over Neff Test positive Lumbar facet Loading Test: positive Right / positive Left L3-L4/ L4-L5 Range of motion of the lumbar spine Flexion 30 degrees, extension 10 degrees Straight Leg Raise test: Left/ Right positive at degrees Willis test: positive right / positive left. Severe tenderness over the Sacroiliac joint on the Right / Left sides Gaenslen test: positive bilaterally Seated flexion test: positive bilaterally. Sacral spine : Severe tenderness over the Sacroiliac joint: right side / left side Range of motion: Flexion of the lumbar spine <60 degrees Range of motion: Extension of the lumbar spine <20 degrees Gaenslen's Test positive Willis test: positive right side / left side Thigh Thrust Test Sacral Thrust Test Imaging: MRI non contrast lumbar spine from 05/02/24 Assessment/ Plan : Lumbar radiculopathy Recommendation of BL RFA L3-L4/ L4-L5. Risks, benefits of procedure discussed and patient verbalized understanding. Admits to anti- coagulant use or medical history of diabetes. Protocol for discontinuation/ continuation of medications yao procedure discussed. Minimal anesthesia provided, if clinically indicated, consisting of Versed and Fentanyl. All questions answered. I have spent greater than 30 minutes on patient care today. Dr García was available by phone for the evaluation of this patient. The time was used to review the medical records including relevant urine studies and Prescription history (MAPs), review of the available imaging, evaluation and examination of the patient, coordination of care with the medical staff and if applicable referring physicians, as well as creation of the medical record - Pain Location Lower Back Non-Pharmacological Interventions: Heat Pharmacological Interventions: Block PQRS Narrative: Blood Pressure 114/80 Pain Intensity [Lower Back] 1 Scale Used Numeric (1 - 10) Hx Alcohol Use (MH) No Home Medications: Ambulatory Orders Daridorexant HCl [Quviviq] 1 tab PO HS 06/28/24 Omeprazole 40 mg PO DAILY 06/28/24 metFORMIN HCL [Glucophage] 1 tab PO HS 06/28/24 Fluticasone/Umeclidin/Vilanter [Trelegy Ellipta 200-62.5-25] 1 puff INHALATION DAILY 10/13/24 Controlled Substance Measures - Controlled Substance Measures Is patient prescribed a controlled substance at discharge?: No
== END ==
LOC: PNWHC3 08:19
PROVIDERS: ATTEND Specialist
DX: M54.16 Radiculopathy, lumbar region (principal); Z88.5 Allergy status to narcotic agent; Z87.891 Personal history of nicotine dependence
CPT/HCPCS: 99212

== ENCOUNTER 2024-12-22 08:07 | Day surgery (SDC) | payer OTHER ==
[2024-12-22] MEDS: IV FLUID CONTINUATION 1,000 ML IV ONE ×3 (08:28→11:52)
[2024-12-22 08:30] VITALS: TEMP 98
[2024-12-22 08:53] LABS: Glucose,Whole Blood 91 mg/dL (70-110)
[2024-12-22] MEDS: LACTATED RINGERS 1,000 ML IV SCH (08:54)
[2024-12-22] MEDS: ONDANSETRON 4 MG/2 ML VIAL IVP STA (09:53)
[2024-12-22] MEDS ORDERED: fentaNYL (PF) 50 MCG/ML 2 ML AMP ONE (10:30)
[2024-12-22] MEDS ORDERED: ROPIVACAINE 5MG/ML 20ML VIAL ONE (10:30)
[2024-12-22] MEDS ORDERED: MIDAZOLAM 2 MG/2 ML VIAL ONE (10:30)
--- NOTE | 2024-12-22 11:27 | P.PCN ---
Description of Procedure: Preprocedure diagnosis. 1. Lumbar spondylosis with facet joint arthropathy without myelopathy. 2. Lumbar degenerative disc disease. Procedure diagnosis. 1. Lumbar spondylosis with facet joint arthropathy without myelopathy. Space 2. Lumbar degenerative disc disease. Procedure.Bilateral radiofrequency thermocoagulation L3, L4 and L2 medial branch, with fluoroscopic guidance (fluoroscopy images are available in the radiology department) (to Denervate the facet joint at bilateral L4- 5 and L3-4 levels) Anesthesia. Moderate sedation with intravenous Versed 2 mg and fentanyl 200 g and local infiltration with Lidocaine. Continuous pulse OX,BP,EKG and verbal communication was maintained with patient. Time. Start 1030. Stop 1117. EBL minimal. Procedure indication. The patient with low back pain secondary to lumbar facet arthropathy who he had more than 50% relief of her pain with previous diagnostic lumbar medial branch block with local anesthetics.The patient was seen and identified in the preoperative area. Risks: Benefits, complications, including but not limited to risk of infection, bleeding, ALLERGIC reaction to the medications and no complete pain relief and alternatives were discussed with the patient, the patient admitted to proceed with the procedure and signed the consent. Procedure description/technique. Patient was taken to the OR and timeout was completed. The patient was placed in prone position on the procedure table. The lumbar area was prepped and draped in the usual sterile fashion. After injecting 5 ml of 1% Lidocaine subcutaneously,using AP and then oblique, lateral view of fluoroscopy, 18-gauge 100 mm radiofrequency cannula with a 10 mm active tip was advanced and guided by fluoroscopy at the junction of supirior articular process with RIGHT transverse process of L3, L4&L5. Each site then underwent positive sensory testing with 50 Hz and 0-1 V and negative motor testing at 2.5 Hz and 0-3 V with local stimulation but no radicular symptoms down the leg. Thereafter each sites underwent radiofrequency thermocoagulation at 80C for 90 seconds after injecting 1 mL of preservative-free 0.5% ropivacaine. Repeat radiofrequency ablation was done at each points after rotating the needle 180 with same setting. This same procedure was repeated twice on the LEFT side at the junction of superior articular process with transverse process of L3, L4, L5 with the same settings after positive sensory,negative motor stimulation and infiltration of 1.0 ml 5% Ropivacaine at each site . RF needles were taken out. At the end of the procedure the skin was cleansed and Band-Aids were applied. Disposition patient tolerated the procedure well. No complication. She was placed in supine position and transferred to the recovery area in stable condition for observation and was discharged home from recovery room after meeting discharge criteria. Discharge instructions given to the patient by the staff. The patient were examined prior to discharge the patient will schedule a follow-up in the clinic in 2-4 weeks.
--- NOTE | 2024-12-22 11:30 | FL ---
EXAMINATION TYPE: FL guided pain mgmt statistic Intraoperative/procedural fluoroscopic services were provided. CLINICAL INDICATION:Female, 53 years old with history of Vicente Lumbar Rad Freq; , [facility] FINDINGS: Fluoroscopic images for bilateral lumbar radio frequency. Posterior fusion hardware on the right at L 5-S1 with pedicle screws and caro. No radiographic evidence for complication. Total fluoroscopy time is 83.2 seconds. DAP: 0.57738 mGym2 Please see the operative/procedural note for further details. [facility], , 12/22/2024 11:28 AM
[2024-12-22 11:52] VITALS: BP 114/75; PULSE 65; RESP 18
== END 2024-12-22 12:04 | disposition home or self-care (01) ==
LOC: ORPAIN 08:07
PROVIDERS: ATTEND Pain Medicine Interventional Pain Medicine
DX: M47.816 Spondylosis without myelopathy or radiculopathy, lumbar region (principal); M51.369 Other intervertebral disc degeneration, lumbar region without mention of lumbar back pain or lower extremity pain
CPT/HCPCS: 64635; 64636; J2250; J2405; J3010; J2795; 99152; 99153

== ENCOUNTER → 2025-01-10 | Outpatient (CLI) | payer OTHER ==
[2025-01-10 07:50] VITALS: BP 118/78; PULSE 67; RESP 17; TEMP 98.2
--- NOTE | 2025-01-10 16:28 | P.PAINPG ---
PQRS Measure Charge Sheet Comment: HISTORY OF PRESENT ILLNESS: A 53 yr old female presents today w severe and chronic LBP since Jun 2024 secondary to L5-S1 Laminectomy/ Discectomy/ Posterior Fusion w Hardware, ACDF C5-C7 for evaluation s/p BL RFA L3-L4/ L4-L5. Pt states she experienced 70% pain relief s/p procedure. Pt states pain level is provoked at 6 /10 in intensity, intermittent, localized in the R lumbar spine, predominantly axial, sore in character w occasional shooting pain to the R buttock. Pain is provoked by sitting for periods > 15 min. Pain is alleviated by PT x 6 wks which ended in 2021, physician guided home stretches daily since 2021, heat, ice, medications, repositioning and rest . Interventional procedures include BL RFA L2-L5 (12/22/24) Medications include Ibu REVIEW OF ORGAN SYSTEMS: CONSTITUTIONAL: No fevers or chills. No recent weight loss. NEUROLOGICAL: + numbness and tingling along the distal extremities. No seizure disorders or headaches. MUSCULOSKELETAL: + pain PSYCHIATRIC: Denies current depression or suicidal t houghts. Physical Examinations : Constitutional : Cooperative , not in acute distress . Neurologic : Cranial nerve II to XII intact. No focal neurological deficits. Psychiatric : alert & oriented x 3. Matching mood & appropriate affect. Judgment & insight intact. Musculoskeletal : Cervical Spine Motor strength in the deltoid and biceps: Normal right side. Normal Left side Motor strength biceps and the wrist extensors: Normal right side . Normal left side Motor strength in the triceps muscle: Normal right side. Normal left side Deep tendon reflexes: Normal at the bi ceps. Normal at Brachioradialis. Normal at triceps Vertebral body tenderness to deep palpation over Cervical facet loading test: positive bilaterally Spurling test: positive bilaterally Neck distraction test: positive bilaterally Navi sign: positive bilaterally Lumbar spine Motor strength lower extremities ,thigh and legs 5/5 Right side , 5/5 Left side Deep tendon reflexes : Normal Knee Jerk. Normal Ankle Jerk Vertebral body tenderness over Neff Test positive Lumbar facet Loading Test: positive Right / positive Left L3-L4/ L4-L5 Range of motion of the lumbar spine Flexion 30 degrees, extension 10 degrees Straight Leg Raise test: Left/ Right p ositive at degrees Willis test: positive right / positive left. Severe tenderness over the Sacroiliac joint on the Right / Left sides Gaenslen test: positive R Seated flexion test: positive R Sacral spine : Severe tenderness over the Sacroiliac joint: right side / left side Range of motion: Flexion of the lumbar spine <60 degrees Range of motion: Extension of the lumbar spine <20 degrees Gaenslen's Test positive Willis test: positive right side / left side Thigh Thrust Test Sacral Thrust Test Imaging: MRI non contrast lumbar spine from 05/02/24 Assessment/ Plan : L5-S1 Laminectomy/ Discectomy/ Posterior Fusion w Hardware, ACDF C5-C7, R Sacroiliitis Recommendation of R SI #1. Risks, benefits of procedure discussed and patient verbalized understanding. All questions answered. I have spent greater than 30 minutes on patient care today. Dr García was available by phone for the evaluation of this patient. The time was used to review the medical records including relevant urine studies and Prescription history (MAPs), review of the available imaging, evaluation and examination of the patient, coordination of care with the medical staff and if applicable referring physicians, as well as creation of the medical record PQRS Narrative: Hx Alcohol Use (MH) No Home Medications: Ambulatory Orders Daridorexant HCl [Quviviq] 1 tab PO HS 06/28/24 Omeprazole 40 mg PO DAILY 06/28/24 metFORMIN HCL [Glucophage] 500 mg PO HS 06/28/24 Fluticasone/Umeclidin/Vilanter [Trelegy Ellipta 200-62.5-25] 1 puff INHALATION DAILY 10/13/24 Controlled Substance Measures - Controlled Substance Measures Is patient prescribed a controlled substance at discharge?: No
== END ==
LOC: PNWHC3 07:35
PROVIDERS: ATTEND Pain Medicine Interventional Pain Medicine
DX: M51.16 Intervertebral disc disorders with radiculopathy, lumbar region (principal); M46.1 Sacroiliitis, not elsewhere classified; Z98.890 Other specified postprocedural states; Z98.1 Arthrodesis status; Z87.891 Personal history of nicotine dependence; Z88.8 Allergy status to other drugs, medicaments and biological substances
CPT/HCPCS: 99212

== ENCOUNTER → 2025-01-19 | Day surgery (SDC) | payer OTHER ==
[~2025-01-19] MED LIST changes: -DEXAMETHASONE SOD PHOSPHATE 10 MG/ML 1 ML VIAL IV ONE; -HYDROmorphone 1 MG/ML 1 ML SYRINGE IVP PRN; +IOPAMIDOL M200 10 ML VIAL ONE; +LACTATED RINGERS 1,000 ML IV SCH; -LIDOCAINE 1% 20 ML VIAL (10MG/ML) FOR IV START INTRADERMA PRN; -MIDAZOLAM 2 MG/2 ML VIAL IV PRN; +ROPIVACAINE 5 MG/ML 30 ML VIAL ONE; -SCOPOLAMINE 1.5MG/72HR PATCH TRANSDERM ONE; -ceFAZolin IN SWFI 2 GM/20 ML SYRINGE IVP ONE; +methylPREDNISolone ACETATE 40 MG/ML 1 ML VIAL ONE
[2025-01-19 10:57] LABS: Glucose,Whole Blood 78 mg/dL (70-110)
[2025-01-19 12:01] VITALS: BP 127/82; PULSE 65; RESP 16
--- NOTE | 2025-01-19 12:14 | FL ---
Fluoroscopy INDICATION: Pain FINDINGS: Fluoroscopy time: 54.5 seconds. Total dose area product (DAP) in uGy*m?, mGy*cm? (or similar): 0.98272 Images obtained: 2. Images document needle directed towards the lower sacral canal IMPRESSION: 1. Documentation of fluoroscopy. [facility], Workstation: [facility], 01/19/2025 12:12 PM
--- NOTE | 2025-01-19 13:09 | P.PCN ---
Description of Procedure: Preprocedure diagnosis. Sacroiliac joint arthropathy. Postprocedure diagnosis. As above. Procedure done. Injection of the radio contrast material into right sacroiliac joint, sacroiliac joint arthrogram, interpretation of arthrogram. right sacroiliac joint injection with local anesthetics and steroid under fluoroscopic guidance. Anesthesia. Local anesthetic infiltration. Continuous EKG, pulse ox, blood pressure, and verbal communication was maintained with the patient in OR. Blood loss. Minimal. Indication. Sacroiliac joint arthropathy. Discussed the procedure, alternatives, complications which may include infection,bleeding, nerve damage, aggravation of pain which could be permanent. Patient understands and questions were answered. Procedure note. After getting consent patient in OR in prone position. Back prepped with chlorhexidine and draped in sterile manner. After injecting 10 mL of 1% lidocaine subcutaneously, a 22-gauge spinal needle was introduced under tunnel vision of the fluoroscope in the lower and posterior one third of right/left sacroiliac joint. After needle position confirmation by AP and crosstable lateral view, 1 mL of Isovue 200 contrast was injected. Contrast was noted to be into the sacroiliac joint. After repeat negative aspiration, 2.5 mL solution was injected which consists of 1.5 ml of 0.5% Ropivacaine mixed with 1 mL of 40 mg Depo-Medrol. In exactly same way left sacroiliac joint was injected with same amount of solution. After the procedure needles were taken out. Bandage applied. Disposition. Patient tolerated the procedure well. No complication. Patient was discharged home in stable condition.
== END ==
LOC: ORPAIN 09:21
PROVIDERS: ATTEND Pain Medicine Interventional Pain Medicine
DX: M46.1 Sacroiliitis, not elsewhere classified (principal); Z88.5 Allergy status to narcotic agent
CPT/HCPCS: 27096; J2795; Q9966; J1010